=== PATIENT | male | born 1965 | race Caucasian/White ===

== ENCOUNTER 2023-02-01 19:48 | Emergency (ER) | payer BC, SELFPAY ==
[2023-02-01 19:49] VITALS: BP 157/73; PULSE 68; RESP 20; TEMP 36.6; O2SAT 97; BMI 27.1
[2023-02-01 19:53] VITALS: BP 157/73; PULSE 64; O2SAT 97
--- NOTE | 2023-02-01 19:55 | ECG_ITS ---
APPROVED REPORT Exam: Resting ECG HR:58 bpm ECG Measurements Heart Rate 58 AXES LA 149 P 78 QRSd 79 QRS 70 QT 402 T 60 QTc 398 Conclusion SINUS BRADYCARDIA BORDERLINE ECG UNCONFIRMED REPORT Electronically signed by : Cem Garcia MD 02/02/2023 19:45:23
[2023-02-01 20:21] LABS: Basophils # 0.1 K/mm3 (0-0.2); Basophils % 0.9 % (0.1-2.0); Eosinophils # 0.6 K/mm3 (0.0-0.4); Hematocrit 45.1 % (42.0-52.0); Hemoglobin 15.3 g/dL (14.1-18.0); Lymphocytes # 3.1 K/mm3 (0.7-4.5); Mean Corpuscular HGB Conc 33.9 g/dL (31.8-35.4); Mean Corpuscular Hemoglobin 30.1 pg (27.0-31.2); Mean Corpuscular Volume 88.7 fl (80-94); Mean Platelet Volume 8.8 fl (7.4-10.4); Monocytes # 0.5 K/mm3 (0.1-1.0); Monocytes % 5.2 % (1.7-9.3); Neutrophils # 5.4 K/mm3 (1.8-7.8); Neutrophils % 55.8 % (37.0-80.0); Platelet Count 285 K/mm3 (142-424); Red Blood Count 5.08 M/mm3 (4.60-6.20); Red Cell Distribution Width 13.6 % (11.5-17.5); White Blood Count 9.7 K/mm3 (4.8-10.8)
[2023-02-01 20:26] LABS: Alanine Aminotransferase 39 U/L (12-78); Albumin Level 4.1 g/dl (3.5-5.0); Albumin/Globulin Ratio 1.4 (1.1-1.8); Alkaline Phosphatase 69 U/L (38-126); Anion Gap 6.7 mEq/L (5-15); Aspartate Amino Transferase 40 U/L (17-59); Bilirubin,Total 0.9 mg/dl (0.2-1.3); Blood Urea Nitrogen 12 mg/dl (9-20); Calcium 8.8 mg/dl (8.4-10.2); Carbon Dioxide 29 mmol/L (22.0-30.0); Chloride 103 mmol/L (98-107); Creatinine Clearance Estimated 116 mL/min (50-200); Estimated Glomerular Filt Rate 87 ml/min (>60); GFR (African American) 105 ML/MIN (>60); Globulin 2.9 g/dL (1.3-3.2); Glucose 147 mg/dl (74-100); Potassium 3.7 mmoL/L (3.5-5.1); Sodium 135 mmol/L (136-145)
--- NOTE | 2023-02-01 20:26 | XR_ITS ---
PROCEDURE INFORMATION: Exam: XR Chest Exam date and time: 02/01/2023 8:27 PM Age: 57 years old Clinical indication: Cough and shortness of breath; Additional info: Cough, SOA TECHNIQUE: Imaging protocol: Radiologic exam of the chest. Views: 2 views. COMPARISON: No relevant prior studies available. FINDINGS: Lungs: No evidence of acute pulmonary disease or infiltrates; lung mackay appear clear. Pleural spaces: No evidence of pleural effusion, pneumothorax, or pleural thickening in the visualized pleural spaces. Heart/Mediastinum: No evidence of mediastinal widening or cardiac silhouette enlargement; the mediastinum and heart appear within normal limits for contour and size. Bones/joints: No evidence of acute osseous abnormalities within the visualized portions of the thoracic spine and ribs. Osseous structures appear appropriate for patient age. IMPRESSION: No dense parenchymal consolidation, pleural effusion, or pneumothorax.
[2023-02-01 20:30] VITALS: BP 139/74; PULSE 56; RESP 12; O2SAT 97
[2023-02-01 20:38] LABS: POC Glucose,Bedside 146 (70-110)
--- NOTE | 2023-02-01 20:39 | [facility].EDGENADL ---
Discharge Plan Disposition Patient Disposition: Home, Self-Care Condition: Good Prescriptions Prescriptions: New prednisone 50 mg tablet 50 mg PO DAILY 5 Days Qty: 5 0RF albuterol sulfate 2.5 mg /3 mL (0.083 %) solution for nebulization 2.5 mg inhalation Q4H PRN (Reason: bronchospasm) Qty: 75 0RF Referrals Follow up/Referrals: Provider,Referral, MD [Primary Care Provider] - See instructions Activity Restrictions/Add. Instructions Additional Instructions/Restrictions: You were evaluated in the emergency department today. 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 Follow-up with your primary care provider. Return to the emergency department for new or worsening symptoms. Clinical Impressions Clinical Impression: Asthma with exacerbation Instructions Patient Instructions: DI for Asthma -- Adult Discharge ED Provider: Lynnette Amaro General Adult HPI General Chief complaint: Shortness of Breath/Dyspnea Stated complaint: SOA Time Seen by Provider: 02/01/23 19:53 Mode of Arrival: Ambulatory Source of Information: Patient Limitations: No Limitations Description of Symptoms (Recalled from ER Triage Doc. by RN): pt reports here visiting family, reports having to use inhaler more than usual because of being SOA, reports has a nebulizer at home but did not bring it with him, denies CP. but has a none productive cough History of Present Illness HPI narrative: This patient is a 57-year-old male with a history of asthma presenting to the emergency department for evaluation with concern for wheezing. Patient states that he forgot his nebulizer at home when he was coming to visit. He states that he came to visit to stay with his mom, who has cats and dogs, and since then he has been having to use an inhaler every hour and a half. He states that he feels like he cannot get rid of his wheezing and dry cough. He denies any chest pain, fevers, or other concerns. He has otherwise been well. Related Data Previous Rx's Medication Instructions Recorded albuterol sulfate 2.5 mg/3 mL 2.5 mg (3 mL) inhalation Q4H PRN 02/01/23 (0.083 %) solution for nebulization bronchospasm #75 mL prednisone 50 mg tablet 50 mg PO DAILY 5 days #5 tabs 02/01/23 Allergies Allergy/AdvReac Type Severity Reaction Status Date / Time lisinopril Allergy Verified 02/01/23 20:08 shellfish derived Allergy Verified 02/01/23 20:08 [facility] Disclaimer: The information contained in this section may have been updated after the patient was seen, as this information can be updated by other users. Social History Smoking Status: Never smoker alcohol intake: never current occupational status: employed Travel in the last 8 weeks: None ROS Obtained: Yes All systems reviewed & no additional complaints except as documented Physical Exam General General appearance: alert and in no apparent distress Head Head exam: atraumatic and normocephalic Eye Eye exam: Present normal appearance, PERRL and EOMI ENT ENT exam: Present normal exam, normal oropharynx, mucous membranes moist and normal external ear exam Neck Neck exam: Present normal inspection, full ROM and trachea midline; Absent tenderness Chest Chest inspection: Present normal inspection and symmetric chest wall rise; Absent tenderness Respiratory Respiratory exam: Present wheezes (Faint end expiratory wheezing); Absent respiratory distress, stridor, accessory muscle use or prolonged expiratory phase Cardiovascular Cardiovascular exam: Present regular rate and normal rhythm Abdominal Exam Abdominal exam: Present soft; Absent distention, tenderness or guarding Extremities Exam Extremities exam: Present normal inspection, full ROM and normal capillary refill; Absent tenderness or edema Back Exam Back exam: Present normal inspection and full ROM; Absent tenderness Neurological Exam Neurological exam: Present alert,
[2023-02-01 20:57] VITALS: PULSE 85
[2023-02-01 21:23] LABS: Coronavirus 19, PCR Not Detected (NotDetected); Influenza A, PCR Not Detected (NotDetected); Influenza B, PCR Not Detected (NotDetected)
[2023-02-01 21:25] VITALS: BP 128/67; PULSE 60; O2SAT 96
[2023-02-01 21:45] VITALS: BP 130/63; PULSE 60; RESP 16; TEMP 36.8; O2SAT 100
== END 2023-02-01 21:46 | disposition home or self-care (01) ==
PROVIDERS: Emergency Provider Emergency Medicine
DX: J45.901 Unspecified asthma with (acute) exacerbation (principal); R00.1 Bradycardia, unspecified; R05.9 Cough, unspecified
CPT/HCPCS: 71046; 80053; 82962; 85025; 87636; 93005; 99284